=== PATIENT | male | born 1995 | race Caucasian/White ===

== ENCOUNTER 2023-07-04 07:50 | Emergency (ER) | payer SELFPAY ==
[2023-07-04 07:55] VITALS: BP 159/94; PULSE 108; TEMP 36.6; O2SAT 100; BMI 18.7
--- NOTE | 2023-07-04 08:03 | CT_ITS ---
The [address] [address] Patient Name: BHARATHI JOSÉ MRN: [id number] date: 1995 Sex: M Assigned Patient Location: ED.MAIN Current Patient Location: Accession/Order Number: [id number] Exam Date: 07/04/2023 08:40 Report Date: 07/04/2023 09:00 At the request of: JIMMY AL Procedure: CT abdomen pelvis wo con EXAMINATION: CT abdomen pelvis wo con HISTORY: R flank pain COMPARISON: No relevant comparison available. TECHNIQUE: Axial, Coronal, and Sagittal images were obtained without and/or with IV contrast as indicated by examination type. Dose reduction techniques were achieved by using automated exposure control and/or adjustment of mA and/or kV according to patient size and/or use of iterative reconstruction technique. FINDINGS: LUNG BASES: No visible pulmonary or pleural disease. LIVER: No enlargement, atrophy, suspicious density, or significant focal lesion. BILIARY: No dilatation or calcification. PANCREAS: No lesion, fluid collection, or abnormal duct dilatation. SPLEEN: No enlargement or focal lesion. ADRENALS: No mass or enlargement. KIDNEYS: Multiple nonobstructing stones within kidneys bilaterally. Mild right periureteral standing; no ureteral stones. BOWEL/MESENTERY: No visible mass, obstruction, or bowel wall thickening. AORTA/VASCULAR: No aneurysm or dissection. RETROPERITONEUM: No mass or adenopathy. LYMPH NODES: No adenopathy. URINARY BLADDER: 4 mm stone within urinary bladder. PELVIC ORGANS: No visible mass. Pelvic organs appropriate for patient age. ABDOMINAL WALL: No mass or hernia. BONES: No bony lesion or fracture. OTHER: Negative. CT/CT abdomen pelvis wo con IMPRESSION: 1. Within the urinary bladder is a 4 mm stones; likely from recent passage through right ureter. 2. Bilateral nonobstructing nephrolithiasis. Electronically authenticated by: ELIZABETH YOUNG Date: 07/04/2023 09:00
[2023-07-04] MEDS: 0.9 % SODIUM CHLORIDE 1,000 ML 1000 ML IV (08:20)
[2023-07-04] MEDS: KETOROLAC TROMETHAMINE 30 MG/ML VIAL IVP (08:20)
[2023-07-04 08:23] LABS: Basophils Absolute Auto 0.1 10^3/uL (0.0-0.1); Basophils Percent Auto 0.7 % (0.2-2.0); Eosinophils Absolute Auto 0.3 10^3/uL (0.0-0.7); Eosinophils Percent Auto 2.9 % (0.9-7.0); Hematocrit 44.3 % (42.0-54.0); Hemoglobin 14.9 g/dL (14.0-18.0); Immature Granulocytes Abs Auto 0.01 10^3/uL (0.00-0.03); Immature Granulocytes Pct Auto 0.1 % (0.0-0.5); Lymphocytes Absolute Auto 4.8 10^3/uL (1.2-3.8); Mean Corpuscular HGB Conc 33.6 g/dL (29.9-35.2); Mean Corpuscular Hemoglobin 29.8 pg (25.9-34.0); Mean Corpuscular Volume 88.6 fL (80.0-94.0); Mean Platelet Volume 10.5 fL (9.5-13.5); Monocytes Percent Auto 9.1 % (1.7-12.0); Neutrophils Absolute Auto 4.6 10^3/uL (1.4-6.5); Neutrophils Percent Auto 42.2 % (43.0-75.0); Platelet Count 281 10^3/uL (150-450); Red Cell Distribution Width 11.9 % (11.0-15.0); White Blood Count 10.8 10^3/uL (4.0-11.0)
[2023-07-04] MEDS: ONDANSETRON PF 4 MG/2 ML VIAL IV (08:30)
--- NOTE | 2023-07-04 08:30 | ED_ITS ---
HPI HPI - General Adult General Chief complaint: Back Pain/Injury Stated complaint: GENERAL WEAKNESS/ BACK PAIN Time Seen by Provider: 07/04/23 07:54 Source: patient Mode of arrival: Wheelchair Limitations: no limitations History of Present Illness HPI narrative: Patient to ED complaining of right-sided back pain. He said he woke up this morning And went to the bathroom and when he got back in bed he started having sudden severe right-sided back pain. He said it felt like his spine was breaking. He said he felt like this 1 other time in the past when he had A tick bite and was in the early stages of Lyme disease. He said he checked all over his body and did not see any tick bites, I do not see any tick bites or bite patino either. He does have a history of a kidney stone but states this does not feel like that. He does have right-sided flank pain with nausea vomiting. He is slightly tachycardic as well from pain. He said he was fine yesterday and last night and there were no other issues until this morning when he had sudden onset of pain. He denies abdominal pain or pain into his legs. No injury. Related Data Allergies Allergy/AdvReac Type Severity Reaction Status Date / Time No Known Drug Allergies Allergy Verified 07/04/23 07:58 Opioid HPI Opioid Management Most Recent Opioid Data: Last Pain Scale 4 07/04/23 08:48 Last ED Pain Assessment 07/04/23 08:48 Last MAR Pain Assessment 07/04/23 08:20 Review of Systems ROS Status of ROS 10 or more systems reviewed and unremark able except as noted in history and below Exam Narrative Exam Narrative: Time Seen: [] Vital Signs: [Per nurse's notes.] General: [Alert] Skin: [Warm, dry, no rash.] Head: [Normocephalic, atraumatic.] Neck: [Supple, trachea midline.] Eye: [Pupils are equal, round and reactive to light, extraocular movements are intact, normal conjunctiva.] Ears, nose, mouth and throat: oral mucosa moist. Cardiovascular: [Regular rate and rhythm, no murmur.] Respiratory: [Lungs are clear to auscultation, respirations are non-labored, breath sounds are equal.] Chest wall: [No tenderness, no deformity.] Gastrointestinal: [Soft, nontender, non distended, normal bowel sounds.] MSK: 5 out of 5 muscle strength x 4 extremities no calf pain or edema Right CVA tenderness right thoracic and lumbar paraspinal tenderness Lymphatics: [No lymphadenopathy.] Psychiatric: [Cooperative, appropriate mood & affect.] Neurological: [Alert and oriented to person, place, time, and situation, no focal neurological deficit observed.] Constitutional Vital Signs, click to edit/add: Last Vital Signs Temp 97.8 F 07/04/23 07:55 Pulse 72 07/04/23 09:08 Resp 20 07/04/23 09:08 BP 121/62 07/04/23 09:08 Pulse Ox 97 07/04/23 09:08 O2 Del Method Room Air 07/04/23 07:55 Course Vital Signs Vital signs: Vital Signs Temperature 97.8 F 07/04/23 07:55 Pulse Rate 108 H 07/04/23 07:55 Respiratory Rate 24 H 07/04/23 07:55 Blood Pressure 159/94 H 07/04/23 07:55 Pulse Oximetry 100 07/04/23 07:55 Oxygen Delivery Method Room Air 07/04/23 07:55 Temperature 97.8 F 07/04/23 07:55 Pulse Rate 72 07/04/23 09:08 Respiratory Rate 20 07/04/23 09:08 Blood Pressure 121/62 07/04/23 09:08 Pulse Oximetry 97 07/04/23 09:08 Oxygen Delivery Method Room Air 07/04/23 07:55 Medical Decision Making MDM Narrative Medical decision making narrative: CT scan shows a recently passed right renal stone that is now in the urinary bladder. This would make sense given the patient's acute onset of flank pain. He is feeling better now after Toradol Zofran and also the fact that the stone is in the bladder. I told him it would come out easily with his urinary stream and he should not have any continued issues. I do not think he needs any medication at home because he should pass this easily now. Instructed to stay well-hydrated. Differential Diagnosis Differential Diagnosis: Lyme's disease kidney stone COVID lumbar strain Medical Records Medical records reviewed: Yes I reviewed the patient's medical records Lab Data Lab results reviewed: Yes I reviewed the patient's lab results Labs: Lab Results 07/04/23 07/04/23 Range/Units 08:11 08:13 WBC 10.8 (4.0-11.0) 10^3/uL RBC 5.00 (4.70-6.10) 10^6/uL Hgb 14.9 (14.0-18.0) g/dL Hct 44.3 (42.0-54.0) % MCV 88.6 (80.0-94.0) fL MCH 29.8 (25.9-34.0) pg MCHC 33.6 (29.9-35.2) g/dL RDW 11.9 (11.0-15.0) % Plt Count 281 (150-450) 10^3/uL MPV 10.5 (9.5-13.5) fL Neut % (Auto) 42.2 L (43.0-75.0) % Lymph % (Auto) 45.0 (20.5-60.0) % Tift % (Auto) 9.1 (1.7-12.0) % Eos % (Auto) 2.9 (0.9-7.0) % Baso % (Auto) 0.7 (0.2-2.0) % Neut # (Auto) 4.6 (1.4-6.5) 10^3/uL Lymph # (Auto) 4.8 H (1.2-3.8) 10^3/uL Tift # (Auto) 1.0 H (0.3-0.8) 10^3/uL Eos # (Auto) 0.3 (0.0-0.7) 10^3/uL Baso # (Auto) 0.1 (0.0-0.1) 10^3/uL Abs Immat Gran (auto) 0.01 (0.00-0.03) 10^3/uL Imm/Tot Granulo (auto) 0.1 (0.0-0.5) % Sodium 139 (136-145) mmol/L Potassium 3.1 L (3.5-5.1) mmol/L Chloride 103 (98-107) mmol/L Carbon Dioxide 20.1 L (21.0-32.0) mmol/L Anion Gap 19.0 BUN 11.0 (7.0-18.0) mg/dL Creatinine 1.11 (0.70-1.30) mg/dL Est GFR ( Amer) >60 (>=60) Est GFR (Non-Af Amer) >60 (>=60) BUN/Creatinine Ratio 9.9 Glucose 122 H (74-106) mg/dL Calcium 9.7 (8.5-10.1) mg/dL Total Bilirubin 0.4 (0.2-1.0) mg/dL AST 17 (15-37) U/L ALT 31 (16-63) U/L Alkaline Phosphatase 103 (46-116) U/L Total Protein 7.2 (6.4-8.2) g/dL Albumin 4.3 (3.4-5.0) g/dL Globulin 2.9 g/dL Albumin/Globulin Ratio 1.5 SARS-CoV-2 Ag (CV2AG) Negative (NEGATIVE) Imaging Data CT scan - abdomen: Radiologist's impression: ITS Impressions Abdomen/Pelvis CT 07/04/23 08:03 IMPRESSION: 1. Within the urinary bladder is a 4 mm stones; likely from recent passage through right ureter. 2. Bilateral nonobstructing nephrolithiasis. Electronically authenticated by: ELIZABETH YOUNG Date: 07/04/2023 09:00 Discharge Plan Discharge Stand Alone Forms: Portal Instructions Chief Complaint: Back Pain/Injury Clinical Impression: Kidney stone on right side Patient Disposition: Home, Self-Care Time of Disposition Decision: 09:17 Mode of Transportation: Private Vehicle Print Language: Greenlandic Instructions: Kidney Stones (ED) Referrals: Physician,Non-Staff, MD [Primary Care Provider] - 1 week
[2023-07-04 08:35] LABS: SARS-CoV-2 Ag NEGATIVE (NEGATIVE)
[2023-07-04 08:40] LABS: Alanine Aminotransferase 31 U/L (16-63); Albumin Globulin Ratio 1.5; Albumin Level 4.3 g/dL (3.4-5.0); Alkaline Phosphatase 103 U/L (46-116); Aspartate Amino Transferase 17 U/L (15-37); BUN Creatinine Ratio 9.9; Bilirubin Total 0.4 mg/dL (0.2-1.0); Calcium 9.7 mg/dL (8.5-10.1); Carbon Dioxide 20.1 mmol/L (21.0-32.0); Chloride 103 mmol/L (98-107); Estimated GFR (African America >60 (>=60); Estimated GFR (Non-African Ame >60 (>=60); Globulin 2.9 g/dL; Glucose 122 mg/dL (74-106); Potassium 3.1 mmol/L (3.5-5.1); Sodium 139 mmol/L (136-145); Total Protein 7.2 g/dL (6.4-8.2)
[2023-07-04 09:08] VITALS: BP 121/62; PULSE 72; O2SAT 97
[2023-07-05 15:10] LABS: Lyme Total Antibody CIA Negative (Negative)
== END 2023-07-04 09:36 | disposition home or self-care (01) ==
PROVIDERS: Emergency Provider Emergency Medicine
DX: N20.0 Calculus of kidney (principal); Z87.442 Personal history of urinary calculi; Z20.822 Contact with and (suspected) exposure to COVID-19
CPT/HCPCS: 36415; 74176; 80053; 85025; 86618; 87811; 96361; 96374; 96375; 99284